=== PATIENT | female | born 1955 | race Caucasian/White ===

== ENCOUNTER 2024-09-02 14:23 | Emergency (ER) | payer MEDICARE, BC ==
[~2024-09-02] VITALS: Ht 162.6 cm; Wt 62.2 kg
[2024-09-02 14:40] VITALS: BP 146/74; PULSE 95; RESP 16; TEMP 98; O2SAT 96
[2024-09-02] MEDS ORDERED: CLIN-214 PO (15:19)
[2024-09-02] MEDS ORDERED: METR-159 PO (15:19)
== END 2024-09-02 16:30 | disposition home or self-care (01) ==
LOC: ER 14:24
DX: S61.451A Open bite of right hand, initial encounter (principal); Z88.0 Allergy status to penicillin; Z88.2 Allergy status to sulfonamides; W54.0XXA Bitten by dog, initial encounter; Y93.89 Activity, other specified; Y92.89 Other specified places as the place of occurrence of the external cause; Y99.8 Other external cause status
CPT/HCPCS: 99283; A6258

== ENCOUNTER 2024-09-09 11:15 | Emergency (ER) | payer MEDICARE, BC ==
[~2024-09-09] VITALS: Ht 165.1 cm; Wt 48.6 kg
[~2024-09-09 11:15] MED LIST: CLIN-214 PO; METR-159 PO
[2024-09-09 11:25] VITALS: BP 123/78; PULSE 87; RESP 14; TEMP 97.1; O2SAT 99
== END 2024-09-09 12:22 | disposition home or self-care (01) ==
LOC: ER 11:16
DX: S61.451A Open bite of right hand, initial encounter (principal); Z88.0 Allergy status to penicillin; Z88.1 Allergy status to other antibiotic agents; Z88.2 Allergy status to sulfonamides; W54.0XXA Bitten by dog, initial encounter; Y93.89 Activity, other specified; Y92.89 Other specified places as the place of occurrence of the external cause; Y99.8 Other external cause status
CPT/HCPCS: 99281